=== PATIENT | female | born 2000 | race Caucasian/White ===

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

== ENCOUNTER 2018-03-07 11:44 | Emergency (ER) | payer BC ==
[2018-03-07 12:04] VITALS: RESP 18
--- NOTE | 2018-03-07 12:15 | ED ---
Chest Pain HPI - General Chief Complaint: Chest Pain Stated Complaint: Chest Pain Time Seen by Provider: 03/07/18 12:02 Source: patient, family, RN notes reviewed Mode of arrival: ambulatory Limitations: no limitations - History of Present Illness Initial Comments: This is a 17-year-old female presents emergency Department chief complaint of chest discomfort. Patient states that she is symptoms 2 months ago and most recently last few days. She states she feels a pressure-like pain in her sternal region and symptoms in her right rib region. He denies any trauma or any known injury. She states nothing seems to make the pain feel better or worse. She denies any associated shortness of breath, nausea, vomiting. She states that she did have some dizziness few days ago. Patient states that she checked her blood pressure this morning in her blood pressure was 138/116. Patient states that her heart rate was elevated at 120. She denies any palpitations. Denies any focal weakness. She has no prior cardiac disease denies hypertension, hyperlipidemia, smoking history. Patient states that she has no history of anxiety. - Related Data Home Medications Medication Instructions Recorded Confirmed Ibuprofen [Motrin Ib] 200 - 400 mg PO Q6H PRN 12/23/17 03/07/18 Medroxyprogesterone Acetate 150 mg IM Q90D 03/07/18 03/07/18 [Depo-Provera] Allergies Allergy/AdvReac Type Severity Reaction Status Date / Time No Known Allergies Allergy Verified 03/07/18 12:41 Review of Systems ROS Statement: Those systems with pertinent positive or pertinent negative responses have been documented in the HPI. ROS Other: All systems not noted in ROS Statement are negative. EKG Findings - EKG Comments: EKG Findings:: EKG performed this 12:16 normal sinus rhythm with a rate of 80 CA 138 QRS 86 QT/QTC 356/410 Past Medical History Past Medical History: No Reported History History of Any Multi-Drug Resistant Organisms: None Reported Past Surgical History: No Surgical Hx Reported Past Psychological History: No Psychological Hx Reported Smoking Status: Never smoker Past Alcohol Use History: None Reported Past Drug Use History: None Reported General Exam Limitations: no limitations General appearance: alert, in no apparent distress Head exam: Present: atraumatic, normocephalic, normal inspection Eye exam: Present: normal appearance, PERRL, EOMI. Absent: scleral icterus, conjunctival injection, periorbital swelling ENT exam: Present: normal exam, normal oropharynx, mucous membranes moist, TM's normal bilaterally Neck exam: Present: normal inspection, full ROM. Absent: tenderness, meningismus, lymphadenopathy Respiratory exam: Present: normal lung sounds bilaterally, chest wall tenderness. Absent: respiratory distress, wheezes, rales, rhonchi, stridor Cardiovascular Exam: Present: regular rate, normal rhythm, normal heart sounds. Absent: systolic murmur, diastolic murmur, rubs, gallop, clicks GI/Abdominal exam: Present: soft, normal bowel sounds. Absent: distended, tenderness, guarding, rebound, rigid Skin exam: Present: warm, dry, intact, normal color. Absent: rash Course Vital Signs 03/07/18 03/07/18 03/07/18 11:48 11:57 12:02 Temperature 98.2 F Pulse Rate 96 84 Pulse Rate [ 87 Left Sitting Pulse Oximetery ] Respiratory 20 18 Rate Blood Pressure 141/90 133/80 O2 Sat by Pulse 99 Oximetry 03/07/18 12:05 Temperature Pulse Rate Pulse Rate [ Left Sitting Pulse Oximetery ] Respiratory Rate Blood Pressure O2 Sat by Pulse 99 Oximetry Chest Pain MDM - MDM 17-year-old female presents from for chest pain. She has had on-and-off symptoms. Patient's EKG and chest x-ray are unremarkable. Patient's pain is reproducible and felt a be related to muscle skeletal chest wall pain. We discussed that she can follow-up with her PCP for possible Holter monitor and echocardiogram as needed. She does have an upcoming appointment. 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 I did explain that she does not have any evidence of cardiac arrhythmia at this time. Patient is perc negative. Disposition Clinical Impression: Chest wall pain Disposition: HOME SELF-CARE Condition: Stable Instructions: Chest Pain (ED) Additional Instructions: Please return to the Emergency Department if symptoms worsen or any other concerns. Is patient prescribed a controlled substance at d/c from ED?: No Referrals: Ke Tom DO [Primary Care Provider] - 1-2 days Magui Wymna MD [STAFF PHYSICIAN] - 1-2 days Time of Disposition: 13:14
--- NOTE | 2018-03-07 12:30 | XR ---
EXAMINATION TYPE: XR chest 2V DATE OF EXAM: 03/07/2018 COMPARISON: 12/23/2017 HISTORY: Chest pain and arrhythmia TECHNIQUE: Frontal and lateral views of the chest are obtained. FINDINGS: There is no focal air space opacity, pleural effusion, or pneumothorax seen. The cardiac silhouette size is within normal limits. The osseous structures are intact. IMPRESSION: No acute cardiopulmonary process.
[2018-03-07 13:24] VITALS: BP 116/74; PULSE 72; TEMP 98.3
== END 2018-03-07 13:22 | disposition home or self-care (01) ==
LOC: EC 11:44
DX: R07.89 Other chest pain (principal); R42 Dizziness and giddiness; Z79.3 Long term (current) use of hormonal contraceptives
CPT/HCPCS: 71046; 93005; 99285

== ENCOUNTER → 2018-03-21 | Outpatient (CLI) | payer BC | END | disposition home or self-care (01) | LOC: RADECHMAIN 12:23 | PROVIDERS: ATTEND Family Medicine | DX: I49.3 Ventricular premature depolarization (principal) | CPT/HCPCS: 93225; 93226 ==

== ENCOUNTER 2019-09-08 15:41 | Emergency (ER) | payer BC ==
[2019-09-08 17:35] LABS: Basophils % (A) 0 %; Eosinophils # (A) 0.1 k/uL (0-0.7); Eosinophils % (A) 1 %; HGB 13.5 gm/dL (11.4-16.0); Lymphocytes # (A) 2.7 k/uL (1.0-4.8); Lymphocytes % (A) 24 %; MCH 30.7 pg (25.0-35.0); MCHC 33.8 g/dL (31.0-37.0); Monocytes # (A) 0.5 k/uL (0-1.0); Monocytes % (A) 4 %; Neutrophils # (A) 7.7 k/uL (1.3-7.7); Neutrophils % (A) 69 %; Platelet Count 426 k/uL (150-450); RBC 4.39 m/uL (3.80-5.40); RDW 13.5 % (11.5-15.5); WBC 11.2 k/uL (3.8-10.6)
[2019-09-08 17:52] LABS: Albumin 4.3 g/dL (3.5-5.0); Calcium 9.5 mg/dL (8.4-10.2); Potassium 4.5 mmol/L (3.5-5.1); Total Bilirubin 0.4 mg/dL (0.2-1.3); Total Protein 7.8 g/dL (6.3-8.2)
--- NOTE | 2019-09-08 17:58 | XR ---
EXAMINATION: XR chest 2V DATE AND TIME: 09/08/2019 5:35 PM CLINICAL INDICATION: PHH; Chest Pain TECHNIQUE: Departmental protocol COMPARISON: 688 FINDINGS: The lungs are clear. The pleural spaces are negative. The cardiac silhouette is not enlarged. The remainder of the mediastinal silhouette is unremarkable. The skeletal structures and soft tissues are negative for acute findings. IMPRESSION: No acute radiographic process.
[2019-09-08] MEDS ORDERED: SODIUM CHLORIDE 0.9% 500 ML 500 ML IV STA (18:04)
--- NOTE | 2019-09-08 18:28 | ED ---
General Adult HPI - General Chief complaint: Chest Pain Stated complaint: Chest pain/heaviness Time Seen by Provider: 09/08/19 16:16 Source: patient, RN notes reviewed, old records reviewed Mode of arrival: wheelchair Limitations: no limitations - History of Present Illness Initial comments: 19-year-old female patient presents to ED for chief complaint of left parasternal chest pain. Patient reports that this began approximately noon. Reports that is reproducible by palpation. Described as slightly pleuritic in nature. Denies any shortness of breath. Denies a prior history of DVT, denies exogenous hormones use, denies any recent prolonged travel, denies any pain in legs, denies any active cancer. Denies any chance of being pregnany. Patient r eports that she did have wisdom teeth removed approximately 10 days ago Systemic: Pt denies fatigue, fever/chills, rash. Pt denies weakness, night sweats, weight loss. Neuro: Pt denies headache, visual disturbances, syncope or pre-syncope. HEENT: Pt denies ocular discharge or irritation, otalgia, rhinorrhea, pharyngitis or notable lymphadenopathy. Cardiopulmonary: Pt denies SOB, heart palpitations, dyspnea on exertion. Abdominal/GI: Pt denies abdominal pain, n/v/d. : Pt denies dysuria, burning w/ urination, frequency/urgency. Denies new onset urinary or bowel incontinence. MSK: Pt denies myalgia, loss of strength or function in extremities. Neuro: Pt denies new onset weakness, paresthesias. - Related Data Home Medications Medication Instructions Recorded Confirmed Ibuprofen [Motrin Ib] 200 - 400 mg PO Q6H PRN 12/23/17 03/07/18 Medroxyprogesterone Acetate 150 mg IM Q90D 03/07/18 03/07/18 [Depo-Provera] Allergies Allergy/AdvReac Type Severity Reaction Status Date / Time No Known Allergies Allergy Verified 09/08/19 15:53 Review of Systems ROS Statement: Those systems with pertinent positive or pertinent negative responses have been documented in the HPI. ROS Other: All systems not noted in ROS Statement are negative. Past Medical History Past Medical History: No Reported History History of Any Multi-Drug Resistant Organisms: None Reported Past Surgical History: No Surgical Hx Reported Past Psychological History: No Psychological Hx Reported Smoking Status: Never smoker Past Alcohol Use History: Occasional Past Drug Use History: None Reported General Exam - General Exam Comments Initial Comments: Constitutional: NAD, AOX3, Pt has pleasant affect. HEENT: NC/AT, trachea midline, neck supple, no lymphadenopathy. Posterior pharynx non erythematous, without exudates. External ears appear normal, without discharge. Mucous membranes moist. Eyes PERRLA, EOM intact. There is no scleral icterus. No pallor noted. Cardiopulmonary: RRR, no murmurs, rubs or gallops, no JVD noted. Lungs CTAB in anterior and posterior canseco. No peripheral edema. chest pain reproducible upon palpation. Abdominal exam: Abdomen soft and non-distended. Abdomen non-tender to palpation in all 4 quadrants. Bowel sounds active in LLQ. No hepatosplenomegaly. No ecchymosis Neuro: CN II-XII grossly intact. No nuchal rigidity. No raccon eyes, no salgado sign, no hemotympanum. No cervical spinal tenderness. MSK: No posterior calf tenderness bilaterally, homans sign negative bilaterally. Posterior tibialis and radial pulse +2 bilaterally. Sensation intact in upper and lower extremities. Full active ROM in upper and lower extremities, 5/5 stregnth. Limitations: no limitations Course Vital Signs 09/08/19 09/08/19 15:49 18:41 Temperature 98.3 F 98.1 F Pulse Rate 111 H 87 Respiratory 18 16 Rate Blood Pressure 143/90 120/84 O2 Sat by Pulse 98 99 Oximetry Medical Decision Making - Medical Decision Making 19-year-old female patient presents to ED for chief complaint of left parasternal chest pain. Patient reports that this began approximately noon. Reports that is reproducible by palpation. Described as slightly pleuritic in nature. Denies any shortness of breath. Denies a prior history of DVT, denies exogenous hormones use, denies any recent prolonged travel, denies any pain in legs, denies any active cancer. Patient reports that she did have wisdom teeth removed approximately 10 days ago. Denies any chance of being pregnany. Patient vital signs stable, afebrile. Physical exam did not display acute pathology. Regular rate and rhythm. Aria sign negative, no unilateral leg swelling. Ten derness, erythema. Chest pain reproducible upon palpation. Patient reports this is the pain that she is experiencing. EKG nonischemic. Chest x-ray negative. Upon reevaluation patient reports that discomfort had resolved without intervention. Pain appears more costochondritic in nature. Patient stable for discharge. Follow up with primary care provider tomorrow. Patient will have creatinine rechecked as was mildly elevated. Case discussed with Dr. Calles. - Lab Data Result diagrams: 09/08/19 16:22 09/08/19 16:22 Lab Results 09/08/19 09/08/19 09/08/19 Range/Units 16:22 16:22 16:22 WBC 11.2 H (3.8-10.6) k/uL RBC 4.39 (3.80-5.40) m/uL Hgb 13.5 (11.4-16.0) gm/dL Hct 40.0 (34.0-46.0) % MCV 91.0 (80.0-100.0) fL MCH 30.7 (25.0-35.0) pg MCHC 33.8 (31.0-37.0) g/dL RDW 13.5 (11.5-15.5) % Plt Count 426 (150-450) k/uL Neutrophils % 69 % Lymphocytes % 24 % Monocytes % 4 % Eosinophils % 1 % Basophils % 0 % Neutrophils # 7.7 (1.3-7.7) k/uL Lymphocytes # 2.7 (1.0-4.8) k/uL Monocytes # 0.5 (0-1.0) k/uL Eosinophils # 0.1 (0-0.7) k/uL Basophils # 0.0 (0-0.2) k/uL Sodium 140 (137-145) mmol/L Potassium 4.5 (3.5-5.1) mmol/L Chloride 106 (98-107) mmol/L Carbon Dioxide 25 (22-30) mmol/L Anion Gap 9 mmol/L BUN 12 (7-17) mg/dL Creatinine 1.06 H (0.52-1.04) mg/dL Est GFR (CKD-EPI)AfAm 87 (>60 ml/min/1.73 sqM) Est GFR (CKD-EPI)NonAf 75 (>60 ml/min/1.73 sqM) Glucose 88 (74-99) mg/dL Calcium 9.5 (8.4-10.2) mg/dL Total Bilirubin 0.4 (0.2-1.3) mg/dL AST 23 (14-36) U/L ALT 32 (9-52) U/L Alkaline Phosphatase 90 (38-126) U/L Troponin I <0.012 (0.000-0.034) ng/mL Total Protein 7.8 (6.3-8.2) g/dL Albumin 4.3 (3.5-5.0) g/dL - EKG Data -: EKG Interpreted by Me (and Dr. Calles ) EKG Comments: Ventricular rate 75,. Full 144, QRS 90, QT/QTC 374/417. Sinus rhythm with marked sinus arrhythmia. Otherwise normal EKG. No concern for acute ischemia at this time. Disposition Clinical Impression: Chest wall pain Disposition: HOME SELF-CARE Condition: Stable Instructions (If sedation given, give patient instructions): Costochondritis (ED) Additional Instructions: Follow-up with primary care provider tomorrow. Continue to drink lots of fluids. Have kidney function rechecked. Return to ER if condition worsens in any way. Is patient prescribed a controlled substance at d/c from ED?: No Referrals: Ke Tom DO [Primary Care Provider] - 1-2 days
[2019-09-08 18:42] VITALS: RESP 16; TEMP 98.1
[2019-09-08 19:28] VITALS: BP 118/79; PULSE 72
== END 2019-09-08 19:28 | disposition home or self-care (01) ==
LOC: EC 15:41
DX: R07.89 Other chest pain (principal)
CPT/HCPCS: 36415; 71046; 80053; 84484; 85025; 93005; 96360; 99285

== ENCOUNTER 2019-12-04 | Emergency (ER) | payer BC | END 2019-12-04 13:13 | disposition home or self-care (01) | CPT/HCPCS: 36415; 71046; 80053; 83735; 84484; 85025; 85379; 85610; 85730; 93005; 99285 ==

== ENCOUNTER 2019-12-31 14:48 | Emergency (ER) | payer BC ==
[2019-12-31 14:57] VITALS: BP 140/84; TEMP 98.8
--- NOTE | 2019-12-31 15:17 | XR ---
EXAMINATION TYPE: XR chest 1V DATE OF EXAM: 12/31/2019 COMPARISON: 12/04/2019 INDICATION: Cough TECHNIQUE: Single frontal view of the chest is obtained. FINDINGS: The heart size is normal. The pulmonary vasculature is normal. The lungs are clear. IMPRESSION: 1. No acute pulmonary process.
[2019-12-31 15:31] VITALS: PULSE 74; RESP 18
--- NOTE | 2019-12-31 15:31 | ED ---
General Adult HPI - General Chief complaint: Upper Respiratory Infection Stated complaint: SENT FOR COVID TESTING Time Seen by Provider: 12/31/19 14:58 Source: patient, RN notes reviewed, old records reviewed Mode of arrival: ambulatory Limitations: no limitations - History of Present Illness Initial comments: 19-year-old female patient who is on metoprolol for a reported normal condition for which she does not know what it is called presents to ED for chief complaint of 2 weeks of cough, waxing and waning fevers, anosmia, diarrhea, shortness of breath. He was recently on amoxicillin for strep throat. Reports that she has some chest pain while coughing. She called her primary doctor who recommended to present to the ER for COVID19 testing. Denies any other complaints. Systemic: Pt denies fatigue, fever/chills, rash. Pt denies weakness, night sweats, weight loss. Neuro: Pt denies headache, visual disturbances, syncope or pre-syncope. HEENT: Pt denies ocular discharge or irritation, otalgia, rhinorrhea, pharyngitis or notable lymphadenopathy. Cardiopulmonary: Pt denies heart palpitations, dyspnea on exertion. Abdominal/GI: Pt denies abdominal pain, vomitting. : Pt denies dysuria, burning w/ urination, frequency/urgency. Denies new onset urinary or bowel incontinence. MSK: Pt denies myalgia, loss of strength or function in extremities. Neuro: Pt denies new onset weakness, paresthesias. - Related Data Home Medications Medication Instructions Recorded Confirmed Acetaminophen Tab [Tylenol] 650 mg PO Q6H PRN 12/31/19 12/31/19 Metoprolol Succinate [Toprol XL] 25 mg PO DAILY 12/31/19 12/31/19 Previous Rx's Medication Instructions Recorded Albuterol Inhaler (Bulk) [Ventolin 1 - 2 puff INHALATION Q4-6H PRN #1 12/31/19 Hfa Inhaler (Bulk)] inhaler Allergies Allergy/AdvReac Type Severity Reaction Status Date / Time No Known Allergies Allergy Verified 12/31/19 15:18 Review of Systems ROS Statement: Those systems with pertinent positive or pertinent negative responses have been documented in the HPI. ROS Other: All systems not noted in ROS Statement are negative. Past Medical History Past Medical History: Hypertension Additional Past Medical History / Comment(s): elevated heart rate History of Any Multi-Drug Resistant Organisms: None Reported Past Surgical History: No Surgical Hx Reported Past Psychological History: No Psychological Hx Reported Smoking Status: Never smoker Past Alcohol Use History: Occasional Past Drug Use History: None Reported General Exam - General Exam Comments Initial Comments: Constitutional: NAD, AOX3, Pt has pleasant affect. HEENT: NC/AT, trachea midline, neck supple, no lymphadenopathy. Posterior pharynx non erythematous, without exudates. External ears appear normal, without discharge. Mucous membranes moist. Eyes PERRLA, EOM intact. There is no scleral icterus. No pallor noted. Cardiopulmonary: RRR, no murmurs, rubs or gallops, no JVD noted. Lungs CTAB in anterior and posterior canseco. No peripheral edema. No respiratory distress. Abdominal exam: Abdomen soft and non-distended. Abdomen non-tender to palpation in all 4 quadrants. Bowel sounds active in LLQ. No hepatosplenomegaly. No ecchymosis Neuro: CN II-XII grossly intact. No nuchal rigidity. No raccon eyes, no salgado sign, no hemotympanum. No cervical spinal tenderness. MSK: No posterior calf tenderness bilaterally, homans sign negative bilaterally. Posterior tibialis and radial pulse +2 bilaterally. Sensation intact in upper and lower extremities. Full active ROM in upper and lower extremities, 5/5 stregnth. Limitations: no limitations Course Vital Signs 12/31/19 12/31/19 14:54 15:25 Temperature 98.8 F Pulse Rate 102 H 74 Respiratory 20 18 Rate Blood Pressure 140/84 O2 Sat by Pulse 96 Oximetry Medical Decision Making - Medical Decision Making 19-year-old female patient who is on metoprolol for a reported normal condition for which she does not know what it is called presents to ED for chief complaint of 2 weeks of cough, waxing and waning fevers, anosmia, diarrhea, shortness of breath. He was recently on amoxicillin for strep throat. Reports that she has some chest pain while coughing. She called her primary doctor who recommended to present to the ER for COVID19 testing. Denies any other complaints. Patient vital signs are stable, afebrile. Physical exam did not demonstrate acute pathology. Lungs are clear. Patient not in any respiratory distress. EKG is nonischemic. Patient had recent cardiac workup on 12/03 which was negative. Patient's symptoms are concerning for coronavirus. Patient will be discharged with strict return precautions outpatient primary care follow-up. Case discussed with Dr. Carreno. - EKG Data -: EKG Interpreted by Me (and Dr. Carreno ) EKG Comments: Ventricular rate 74, painful 152, QRS 90, QT/QTC 366 is 46. Normal sinus rhythm, possible left atrial enlargement. Possible age indeterminate anterior infarct. No concern for acute ischemia at this time. Disposition Clinical Impression: Suspected [place] coronavirus infection, Cough Disposition: HOME SELF-CARE Condition: Stable Instructions (If sedation given, give patient instructions): Upper Respiratory Infection (ED) Additional Instructions: Follow-up primary care provider tomorrow. Use albuterol inhaler as needed. Return to ER if symptoms worsen in any way. Prescriptions: Albuterol Inhaler (Bulk) [Ventolin Hfa Inhaler (Bulk)] 1 - 2 puff INHALATION Q4- 6H PRN #1 inhaler PRN Reason: Cough Is patient prescribed a controlled substance at d/c from ED?: No Referrals: Ke Tom DO [Primary Care Provider] - 1-2 days
== END 2019-12-31 16:38 | disposition home or self-care (01) ==
LOC: EC 14:48
DX: R05 Cough (principal); Z20.828 Contact with and (suspected) exposure to other viral communicable diseases; R50.9 Fever, unspecified; R43.0 Anosmia; R19.7 Diarrhea, unspecified; R06.02 Shortness of breath; R07.9 Chest pain, unspecified; I10 Essential (primary) hypertension; Z79.899 Other long term (current) drug therapy; Z86.19 Personal history of other infectious and parasitic diseases
CPT/HCPCS: 71045; 93005; 99285

== ENCOUNTER 2021-04-18 10:25 | Emergency (ER) | payer BC ==
[2021-04-18 10:29] VITALS: RESP 18
[2021-04-18] MEDS ORDERED: MORPHINE SULFATE 4 MG/ML SYRINGE IV STA (11:20)
[2021-04-18] MEDS ORDERED: ONDANSETRON 4 MG/2 ML VIAL IVP STA (11:20)
[2021-04-18] MEDS ORDERED: SODIUM CHLORIDE 0.9% 1,000 ML IV STA (11:20)
[2021-04-18 11:34] LABS: Basophils # (A) 0.1 k/uL (0-0.2); Basophils % (A) 0 %; Eosinophils # (A) 0.1 k/uL (0-0.7); Eosinophils % (A) 1 %; HCT 45.9 % (34.0-46.0); HGB 15.6 gm/dL (11.4-16.0); Lymphocytes # (A) 2.1 k/uL (1.0-4.8); Lymphocytes % (A) 16 %; MCH 32.1 pg (25.0-35.0); MCV 94.5 fL (80.0-100.0); Mean Platelet Volume 8.3; Monocytes # (A) 0.5 k/uL (0-1.0); Monocytes % (A) 4 %; Neutrophils % (A) 78 %; Platelet Count 375 k/uL (150-450); RBC 4.86 m/uL (3.80-5.40); WBC 12.8 k/uL (3.8-10.6)
[2021-04-18 11:36] LABS: Appearance,Urine Clear (Clear); Bilirubin,Urine Negative (Negative); Blood,Urine Negative (Negative); Color,Urine Yellow; Glucose,Urine (UA) Negative (Negative); Ketones,Urine Negative (Negative); Leukocyte Esterase,Urine Negative (Negative); Nitrite,Urine Negative (Negative); PH, Urine 7.5 (5.0-8.0); Protein,Urine Negative (Negative); Specific Gravity,Urine 1.025 (1.001-1.035)
[2021-04-18 11:42] LABS: ALT 26 U/L (4-34); AST 28 U/L (14-36); African American GFR (CKD) >90 (>60 ml/min/1.73 sqM); Albumin 4.6 g/dL (3.5-5.0); Alkaline Phosphatase 70 U/L (38-126); Amylase 61 U/L (30-110); Anion Gap 8 mmol/L; Blood Urea Nitrogen 10 mg/dL (7-17); Calcium 9.7 mg/dL (8.4-10.2); Carbon Dioxide 27 mmol/L (22-30); Chloride 104 mmol/L (98-107); Glucose 100 mg/dL (74-99); Lipase 49 U/L (23-300); Non-African American GFR(CKD) 88 (>60 ml/min/1.73 sqM); Potassium 4.2 mmol/L (3.5-5.1); Sodium 139 mmol/L (137-145); Total Bilirubin 0.8 mg/dL (0.2-1.3); Total Protein 7.2 g/dL (6.3-8.2)
--- NOTE | 2021-04-18 12:28 | CT ---
EXAMINATION TYPE: CT abdomen pelvis w con DATE OF EXAM: 04/18/2021 COMPARISON: None INDICATION: RLQ pain DLP: 993 mGycm, Automated exposure control for dose reduction was used. CONTRAST: 100 mL of Isovue 300. Study performed without Oral Contrast TECHNIQUE: Axial images were obtained from above the diaphragm to the pubic rami in the axial plane a t 5 mm thick sections. Reconstructed images are reviewed on the computer in the coronal plane. FINDINGS: Limited CT sections are obtained the lung bases. The lung bases are clear. CT ABDOMEN: Liver: Normal Spleen: Normal Pancreas: Normal Adrenal glands: The adrenal glands are normal. Gallbladder: Normal Kidneys: No masses are evident. No hydronephrosis is present. No cysts are present. Delayed images were obtained through the kidneys, which remain unremarkable. Aorta: Normal Inferior vena cava: Normal. CT PELVIS: Loops of bowel within the abdomen and pelvis are normal. This study is performed without oral con trast limiting bowel evaluation. Appendix: Not identified. No suspicious dilated tubular structure or inflammatory changes are eviden t. Clinical management of any suspected appendicitis is recommended. Urinary bladder: Normal. Genitourinary structures: Uterus appears normal. The left ovary appears bulky. Osseous structures: No suspicious lytic or sclerotic lesions. IMPRESSIONS: 1. Appendix is not identified. No suspicious dilated tubular structure or inflammatory changes are e vident. Clinical management of any suspected appendicitis is recommended. 2. Slightly bulky ovaries left more so than right. Discrete underlying abnormality is not evident. 3. No suspicious abnormalities account for right lower quadrant pain
--- NOTE | 2021-04-18 13:26 | ED ---
Abdominal Pain HPI - General Source: patient, family, RN notes reviewed Mode of arrival: ambulatory Limitations: no limitations <Rudi Barksdale - Last Filed: 04/18/21 14:29> <Kaycee Carreno - Last Filed: 04/19/21 01:24> - General Chief Complaint: Abdominal Pain Stated Complaint: Abd Pain Time Seen by Provider: 04/18/21 11:16 - History of Present Illness Initial Comments: Patient is a 21-year-old female that presents to emergency room complaining of right lower quadrant pain since 1:30 this morning. She notes that she has nauseous but has not vomited. She notes her bowel movements are regular. She notes the pain is approximately an 8 out of 10 with no relief from at home medications. She was a well-appearing well-hydrated 21-year-old female. She denied any chest pain shortness of breath headache vomiting diarrhea constipation fever fatigue chills. (Rudi Barksdale) - Related Data Home Medications Medication Instructions Recorded Confirmed No Known Home Medications 04/18/21 04/18/21 Allergies Allergy/AdvReac Type Severity Reaction Status Date / Time No Known Allergies Allergy Verified 04/18/21 13:49 Review of Systems ROS Other: All systems not noted in ROS Statement are negative. <Rudi Barksdale - Last Filed: 04/18/21 14:29> ROS Other: All systems not noted in ROS Statement are negative. <Kaycee Carreno - Last Filed: 04/19/21 01:24> ROS Statement: Those systems with pertinent positive or pertinent negative responses have been documented in the HPI. Past Medical History Past Medical History: Hypertension Additional Past Medical History / Comment(s): elevated heart rate History of Any Multi-Drug Resistant Organisms: None Reported Past Surgical History: No Surgical Hx Reported Past Psychological History: No Psychological Hx Reported Smoking Status: Never smoker Past Alcohol Use History: Occasional Past Drug Use History: None Reported <Rudi Barksdale - Last Filed: 04/18/21 14:29> General Exam Limitations: no limitations General appearance: alert, in no apparent distress Head exam: Present: atraumatic, normocephalic, normal inspection Eye exam: Present: normal appearance, PERRL, EOMI. Absent: scleral icterus, conjunctival injection, periorbital swelling Neck exam: Present: normal inspection Respiratory exam: Present: normal lung sounds bilaterally. Absent: respiratory distress, wheezes, rales, rhonchi, stridor Cardiovascular Exam: Present: regular rate, normal rhythm, normal heart sounds. Absent: systolic murmur, diastolic murmur, rubs, gallop, clicks GI/Abdominal exam: Present: soft, normal bowel sounds. Absent: distended, tenderness, guarding, rebound, rigid Expanded GI/Abdominal exam: Present: Rovsing's sign, tenderness at McBurney's Point Extremities exam: Present: normal inspection, full ROM, normal capillary refill. Absent: tenderness, pedal edema, joint swelling, calf tenderness Neurological exam: Present: alert, oriented X3 Psychiatric exam: Present: normal affect, normal mood Skin exam: Present: warm, dry, intact, normal color. Absent: rash <Rudi Barksdale - Last Filed: 04/18/21 14:29> Course Vital Signs 04/18/21 04/18/21 10:26 14:48 Temperature 98.1 F 97.8 F Pulse Rate 75 61 Respiratory 18 18 Rate Blood Pressure 141/97 112/73 O2 Sat by Pulse 99 99 Oximetry Medical Decision Making - Lab Data Result diagrams: 04/18/21 11:24 04/18/21 11:24 - Radiology Data Radiology results: report reviewed, image reviewed <Rudi Barksdale - Last Filed: 04/18/21 14:29> - Lab Data Result diagrams: 04/18/21 11:24 04/18/21 11:24 <Kaycee Carreno - Last Filed: 04/19/21 01:24> - Medical Decision Making 21-year-old female complaining of right lower quadrant pain since 1:30 this morning. Labs, CT of the abdomen and pelvis, 4 mg morphine, 4 mg of Zofran, 1 L normal saline ordered. Labs: White blood cells 12.8, rest unremarkable. CT negative for any acute process such as appendicitis. Transvaginal ultrasound ordered to check for ovarian torsion. Transvaginal ultrasound shows no ovarian torsion, multiple ovarian cysts. Case discussed with Dr. Carreno, patient discharge home with follow-up to primary care and [facility] as needed. (Rudi Barksdale) Nina was available for consultation in the emergency department. The history and physical exam were done by the midlevel provider. I was consulted for this jeremias ents care. I reviewed the case with the midlevel provider and based on their presentation of the patient, I agree with the assessment, medical decision making and plan of care as documented. Chart was dictated using [employer] dictation software. Attempts were made to correct any dictation errors however some typographical errors may persist. (Kaycee Carreno) - Lab Data Lab Results 04/18/21 04/18/21 04/18/21 Range/Units 11:24 11:24 11:24 WBC 12.8 H (3.8-10.6) k/uL RBC 4.86 (3.80-5.40) m/uL Hgb 15.6 (11.4-16.0) gm/dL Hct 45.9 (34.0-46.0) % MCV 94.5 (80.0-100.0) fL MCH 32.1 (25.0-35.0) pg MCHC 34.0 (31.0-37.0) g/dL RDW 13.0 (11.5-15.5) % Plt Count 375 (150-450) k/uL MPV 8.3 Neutrophils % 78 % Lymphocytes % 16 % Monocytes % 4 % Eosinophils % 1 % Basophils % 0 % Neutrophils # 10.0 H (1.3-7.7) k/uL Lymphocytes # 2.1 (1.0-4.8) k/uL Monocytes # 0.5 (0-1.0) k/uL Eosinophils # 0.1 (0-0.7) k/uL Basophils # 0.1 (0-0.2) k/uL Sodium (137-145) mmol/L Potassium (3.5-5.1) mmol/L Chloride (98-107) mmol/L Carbon Dioxide (22-30) mmol/L Anion Gap mmol/L BUN (7-17) mg/dL Creatinine (0.52-1.04) mg/dL Est GFR (CKD-EPI)AfAm (>60 ml/min/1.73 sqM) Est GFR (CKD-EPI)NonAf (>60 ml/min/1.73 sqM) Glucose (74-99) mg/dL Calcium (8.4-10.2) mg/dL Total Bilirubin (0.2-1.3) mg/dL AST (14-36) U/L ALT (4-34) U/L Alkaline Phosphatase (38-126) U/L Total Protein (6.3-8.2) g/dL Albumin (3.5-5.0) g/dL Amylase (30-110) U/L Lipase (23-300) U/L Urine Color Yellow Urine Appearance Clear (Clear) Urine pH 7.5 (5.0-8.0) Ur Specific [place] 1.025 (1.001-1.035) Urine Protein Negative (Negative) Urine Glucose (UA) Negative (Negative) Urine Ketones Negative (Negative) Urine Blood Negative (Negative) Urine Nitrite Negative (Negative) Urine Bilirubin Negative (Negative) Urine Urobilinogen 2.0 (<2.0) mg/dL Ur Leukocyte Esterase Negative (Negative) Urine HCG, Qual Not Detected (Not Detectd) 04/18/21 Range/Units 11:24 WBC (3.8-10.6) k/uL RBC (3.80-5.40) m/uL Hgb (11.4-16.0) gm/dL Hct (34.0-46.0) % MCV (80.0-100.0) fL MCH (25.0-35.0) pg MCHC (31.0-37.0) g/dL RDW (11.5-15.5) % Plt Count (150-450) k/uL MPV Neutrophils % % Lymphocytes % % Monocytes % % Eosinophils % % Basophils % % Neutrophils # (1.3-7.7) k/uL Lymphocytes # (1.0-4.8) k/uL Monocytes # (0-1.0) k/uL Eosinophils # (0-0.7) k/uL Basophils # (0-0.2) k/uL Sodium 139 (137-145) mmol/L Potassium 4.2 (3.5-5.1) mmol/L Chloride 104 (98-107) mmol/L Carbon Dioxide 27 (22-30) mmol/L Anion Gap 8 mmol/L BUN 10 (7-17) mg/dL Creatinine 0.92 (0.52-1.04) mg/dL Est GFR (CKD-EPI)AfAm >90 (>60 ml/min/1.73 sqM) Est GFR (CKD-EPI)NonAf 88 (>60 ml/min/1.73 sqM) Glucose 100 H (74-99) mg/dL Calcium 9.7 (8.4-10.2) mg/dL Total Bilirubin 0.8 (0.2-1.3) mg/dL AST 28 (14-36) U/L ALT 26 (4-34) U/L Alkaline Phosphatase 70 (38-126) U/L Total Protein 7.2 (6.3-8.2) g/dL Albumin 4.6 (3.5-5.0) g/dL Amylase 61 (30-110) U/L Lipase 49 (23-300) U/L Urine Color Urine Appearance (Clear) Urine pH (5.0-8.0) Ur Specific [place] (1.001-1.035) Urine Protein (Negative) Urine Glucose (UA) (Negative) Urine Ketones (Negative) Urine Blood (Negative) Urine Nitrite (Negative) Urine Bilirubin (Negative) Urine Urobilinogen (<2.0) mg/dL Ur Leukocyte Esterase (Negative) Urine HCG, Qual (Not Detectd) - Radiology Data CT of the abdomen and pelvis: Appendix is not identified. No suspicious dilated tubular structure inflammatory changes are evident. Clinical management of any suspected appendicitis is recommended. Slightly bulky ovaries left more so than right. Discrete underlying abnormality is evident. No suspicious abnormalities account for right lower quadrant pain. Transvaginal ultrasound: The bilateral ovaries contain multiple peripheral follicles. Please correlate clinical for possible polycystic ovarian syndrome. Small amount of free fluid in the pelvis. (Rudi Barksdale) Disposition Is patient prescribed a controlled substance at d/c from ED?: No Time of Disposition: 14:30 <Rudi Barksdale - Last Filed: 04/18/21 14:29> <Kaycee Carreno - Last Filed: 04/19/21 01:24> Clinical Impression: Abdominal pain, Ovarian cyst Disposition: HOME SELF-CARE Condition: Stable Instructions (If sedation given, give patient instructions): Abdominal Pain (ED) Additional Instructions: Please return to the Emergency Department if symptoms worsen or any other concerns. Follow-up with primary care in the next several days. Follow-up with [facility] in next several days. Take Tylenol and Motrin as needed for pain. Increase oral fluids. Please return if any vomiting fever or change in bowel habits or increased pain.. Referrals: Ke Tom DO [Primary Care Provider] - 1-2 days
[2021-04-18] MEDS ORDERED: HYDROmorphone 1 MG/ML 1 ML SYRINGE IVP STA (13:49)
--- NOTE | 2021-04-18 14:11 | US ---
EXAMINATION TYPE: US transvaginal DATE OF EXAM: 04/18/2021 COMPARISON: Same day CT CLINICAL HISTORY: RLQ pain. RLQ pain TECHNIQUE: Transvaginal (TV). Transvaginal sonographic images of the pelvis were acquired. Date of LMP: December 2020 EXAM MEASUREMENTS: Uterus: 6.7 x 3.1 x 4.1 cm Endometrial Stripe: 0.6 cm Right Ovary: 3.9 x 2.7 x 3.8 cm Left Ovary: 4.3 x 2.7 x 2.7 cm 1. Uterus: Anteverted Nabothian cyst in cervix 2. Endometrium: wnl 3. Right Ovary: Contains multiple peripheral follicles 4. Left Ovary: Contains multiple peripheral follicles Spectral, color and waveform doppler imaging shows good arterial and venous flow within the ovaries ; there is no evidence for ovarian torsion. 5. Bilateral Adnexa: Small amount of fluid left adnexa 6. Posterior cul-de-sac: Small amount of free fluid IMPRESSION: 1. The bilateral ovaries contain multiple peripheral follicles. Please correlate clinically for possi ble polycystic ovarian syndrome. 2. Small amount of free fluid in the pelvis.
[2021-04-18 14:49] VITALS: BP 112/73; PULSE 61; TEMP 97.8
== END 2021-04-18 14:48 | disposition home or self-care (01) ==
LOC: EC 10:25
DX: N83.201 Unspecified ovarian cyst, right side (principal); I10 Essential (primary) hypertension
CPT/HCPCS: 36415; 80053; 82150; 83690; 85025; 81003; 81025; 93975; 76830; 74177; 96374; 96375 ×2; 96361; 99284; J2270; J2405; J1170; Q9967

== ENCOUNTER 2021-04-21 12:19 | Emergency (ER) | payer BC ==
[2021-04-21] MEDS ORDERED: MORPHINE SULFATE 4 MG/ML SYRINGE IV STA (12:55)
[2021-04-21] MEDS ORDERED: ONDANSETRON 4 MG/2 ML VIAL IVP STA (12:55)
[2021-04-21] MEDS ORDERED: SODIUM CHLORIDE 0.9% 1,000 ML IV STA (12:55)
[2021-04-21] MEDS ORDERED: KETOROLAC 15 MG/ML 1 ML VIAL IVP STA (12:55)
[2021-04-21 13:56] LABS: ALT 49 U/L (4-34); AST 46 U/L (14-36); African American GFR (CKD) >90 (>60 ml/min/1.73 sqM); Albumin 4.6 g/dL (3.5-5.0); Alkaline Phosphatase 68 U/L (38-126); Anion Gap 9 mmol/L; Blood Urea Nitrogen 12 mg/dL (7-17); Calcium 10.1 mg/dL (8.4-10.2); Carbon Dioxide 24 mmol/L (22-30); Chloride 105 mmol/L (98-107); Glucose 78 mg/dL (74-99); Lipase 88 U/L (23-300); Magnesium 2.2 mg/dL (1.6-2.3); Non-African American GFR(CKD) 86 (>60 ml/min/1.73 sqM); Potassium 4.7 mmol/L (3.5-5.1); Sodium 138 mmol/L (137-145); Total Bilirubin 0.4 mg/dL (0.2-1.3); Total Protein 7.4 g/dL (6.3-8.2)
[2021-04-21 14:24] LABS: Appearance,Urine Clear (Clear); Basophils # (A) 0.1 k/uL (0-0.2); Basophils % (A) 1 %; Bilirubin,Urine Negative (Negative); Blood,Urine Negative (Negative); Color,Urine Yellow; Eosinophils # (A) 0.1 k/uL (0-0.7); Eosinophils % (A) 1 %; Glucose,Urine (UA) Negative (Negative); HCT 45.5 % (34.0-46.0); HGB 15.8 gm/dL (11.4-16.0); Ketones,Urine Negative (Negative); Leukocyte Esterase,Urine Negative (Negative); Lymphocytes # (A) 2.4 k/uL (1.0-4.8); Lymphocytes % (A) 29 %; MCHC 34.8 g/dL (31.0-37.0); MCV 94.8 fL (80.0-100.0); Mean Platelet Volume 9.7; Monocytes # (A) 0.4 k/uL (0-1.0); Monocytes % (A) 5 %; Neutrophils # (A) 5.4 k/uL (1.3-7.7); Neutrophils % (A) 64 %; Nitrite,Urine Negative (Negative); PH, Urine 5.5 (5.0-8.0); Platelet Count 352 k/uL (150-450); Protein,Urine Negative (Negative); RDW 13.2 % (11.5-15.5); Specific Gravity,Urine 1.026 (1.001-1.035); Urobilinogen,Urine <2.0 mg/dL (<2.0); WBC 8.5 k/uL (3.8-10.6)
[2021-04-21 14:35] VITALS: RESP 16
--- NOTE | 2021-04-21 15:36 | ED ---
General Adult HPI - General Chief complaint: Abdominal Pain Stated complaint: Abdominal pain Time Seen by Provider: 04/21/21 12:34 Source: patient, RN notes reviewed, old records reviewed Mode of arrival: ambulatory Limitations: no limitations - History of Present Illness Initial comments: Patient is a 21-year-old female with post concussion past medical history presents emergency Department complaining of abdominal pain. She states that this is been ongoing for 1-2 weeks. She was previously seen in the emergency department on 04/18. She was evaluated for the abdominal pain at that time and that included an appendicitis workup including abdominal CT as well as transvaginal ultrasound. Work up was negative for acute appendicitis. I did reveal polycystic ovarian syndrome concern on the transvaginal ultrasound. She was instructed follow-up with [employer]. The patient was seen and an outpatient urgent care today, was concerned that the CT imaging, because it did not show the appendix, that she may have appendicitis. This was explained by one of the other ER doctors that this is actually a good finding, indicating no appendicitis, but we will reevaluate the patient at their request. Patient presents after being sent in by urgent care. She has not yet followed up with [employer]IAN, who she follows up with on Saturday. She states she is just having persisting, unchanged right lower quadrant abdominal pain. She stated she is not . She states she this is also associated with nausea as well as nonbilious emesis. She has difficulty tolerating by mouth intake. She denies any change in her bowel movements. She has any vaginal bleeding or discharge, but the stay having an abnormal. Since coming off control 3 years ago. Last period was in December. She does not believe she is . She denies any dysuria or hematuria. She has no other acute complaints at this time. Patient states that her exam is relatively unchanged from earlier in the week, however it is just persistent and not improving. - Related Data Home Medications Medication Instructions Recorded Confirmed Albuterol Sulfate [Proair Hfa] 2 puff INHALATION RT-Q4H PRN 04/21/21 04/21/21 Fluticasone Nasal [place] [Flonase 1 spr EA NOSTRIL BID PRN 04/21/21 04/21/21 Nasal [place]] Ibuprofen [Motrin Ib] 400 mg PO Q8H PRN 04/21/21 04/21/21 Previous Rx's Medication Instructions Recorded Acetaminophen [Tylenol] 500 mg PO Q4-6H PRN #50 tab 04/21/21 Lidocaine 5% Patch [Lidoderm 5% 1 patch TOPICAL DAILY PRN #7 patch 04/21/21 Patch] Naproxen [Naprosyn] 500 mg PO Q12HR PRN #14 tab 04/21/21 Ondansetron Odt [Zofran Odt] 4 mg PO Q8HR PRN #9 tab 04/21/21 Allergies Allergy/AdvReac Type Severity Reaction Status Date / Time No Known Allergies Allergy Verified 04/21/21 13:35 Review of Systems ROS Statement: Those systems with pertinent positive or pertinent negative responses have been documented in the HPI. Review of Systems: CONST: Denies fever EYES: Denies blurry vision ENT: Denies nasal congestion C/V: Denies Chest pain RESP: Denies shortness of breath GI: Endorses abdominal pain : Denies dysuria SKIN: Denies rash. MSK: Denies joint pain. NEURO: Denies headache ROS Other: All systems not noted in ROS Statement are negative. Past Medical History Past Medical History: Hypertension Additional Past Medical History / Comment(s): elevated heart rate History of Any Multi-Drug Resistant Organisms: None Reported Past Surgical History: No Surgical Hx Reported Past Psychological History: No Psychological Hx Reported Smoking Status: Never smoker Past Alcohol Use History: Occasional Past Drug Use History: None Reported General Exam - General Exam Comments Initial Comments: General: Appears in very mild distress secondary to abdominal discomfort. HEAD: Normal with no signs of head trauma. EYES: PERRLA, EOMI, conjunctiva normal, no discharge. ENT: Hearing grossly intact, normal oropharynx. Oropharynx is not dry. RESPIRATORY: Clear breath sounds bilaterally. No wheezes, rales, or rhonchi. C/V: Regular rate and rhythm. S1 and S2 auscultated, no edema, peripheral pulses 2+ and intact throughout ABD: Abdomen is soft, nondistended. Patient is very mildly tender to palpation in the right lower quadrant/epigastric region. McBurney's point is negative. Hewitt sign is negative. Rovsing sign is negative. EXT: Normal range of motion, no obvious deformity SKIN: No rashes or lesions observed on exposed skin. NEURO: Alert and oriented 4. Limitations: no limitations Course Vital Signs 04/21/21 04/21/2121 12:25 14:34 15:56 Temperature 98 F 98.0 F 98.3 F Pulse Rate 57 L 60 53 L Respiratory 20 16 16 Rate Blood Pressure 152/77 110/73 122/69 O2 Sat by Pulse 99 100 99 Oximetry Medical Decision Making - Medical Decision Making Based on the patient's presentation and physical exam, she does appear to be having her persistent symptoms from earlier in the week without much change. I discussed this with the patient we will repeat laboratory studies at this time. I do not believe that we need to repeat imaging at this time was indicated by laboratory studies. She was in agreement with this plan. Labs will include urine studies, as well as basic electrolytes and CBC. Patient was administered IV Toradol, morphine, Zofran, 1 L fluid bolus for symptom management treatment. Patient is tolerating by mouth intake and reevaluation. Laboratory relatively unremarkable including a normal white count of 8.5 which is improved from earlier in the week. Patient's AST and ALTs are very mildly elevated to 46 and 49. Urine shows that she is not was no concern for UTI. On reevaluation, patient is tolerating by mouth intake. She still having mild persistent pain. Her mother asked regarding repeat imaging. I did discuss with them at length results of her laboratory studies and how they are within normal limits. I explained to them the previous findings on CT, which revealed no signs of acute appendicitis. We did discuss at length the possibility of polycystic ovarian syndrome and her need to follow up with [employer]. They asked if there are any blood studies up he can obtain here in the emergency department and informed them that this is more of an outpatient workup. They express understanding of this. I did advise him to return to the emergency department if they have any new symptoms, or worsening by mouth intake. They expressed und erstanding. Patient was in agreement this plan. I advised him to follow up with her [employer]ICIAN appointment scheduled for next Saturday. I will provide the patient with a prescription for Zofran ODT, lidocaine patch, Naprosyn, Tylenol. I instructed the patient to follow up with their PCP in the next 3 days. The patient already has a follow-up appointment with [employer]CHNICIAN on Saturday.. I explained that the patient should return to the emergency department if they experience any worsening symptoms. Strict return precautions were discussed with the patient. The patient expressed understanding of these instructions. I answered all questions that the patient had. The patient was discharged home in fair condition with their prescriptions and follow up information. - Lab Data Result diagrams: 04/21/21 13:17 04/21/21 13:17 Lab Results 04/21/21 04/21/21 04/21/21 Range/Units 13:17 13:17 13:17 WBC 8.5 (3.8-10.6) k/uL RBC 4.80 (3.80-5.40) m/uL Hgb 15.8 (11.4-16.0) gm/dL Hct 45.5 (34.0-46.0) % MCV 94.8 (80.0-100.0) fL MCH 33.0 (25.0-35.0) pg MCHC 34.8 (31.0-37.0) g/dL RDW 13.2 (11.5-15.5) % Plt Count 352 (150-450) k/uL MPV 9.7 Neutrophils % 64 % Lymphocytes % 29 % Monocytes % 5 % Eosinophils % 1 % Basophils % 1 % Neutrophils # 5.4 (1.3-7.7) k/uL Lymphocytes # 2.4 (1.0-4.8) k/uL Monocytes # 0.4 (0-1.0) k/uL Eosinophils # 0.1 (0-0.7) k/uL Basophils # 0.1 (0-0.2) k/uL Sodium (137-145) mmol/L Potassium (3.5-5.1) mmol/L Chloride (98-107) mmol/L Carbon Dioxide (22-30) mmol/L Anion Gap mmol/L BUN (7-17) mg/dL Creatinine (0.52-1.04) mg/dL Est GFR (CKD-EPI)AfAm (>60 ml/min/1.73 sqM) Est GFR (CKD-EPI)NonAf (>60 ml/min/1.73 sqM) Glucose (74-99) mg/dL Calcium (8.4-10.2) mg/dL Magnesium (1.6-2.3) mg/dL Total Bilirubin (0.2-1.3) mg/dL AST (14-36) U/L ALT (4-34) U/L Alkaline Phosphatase (38-126) U/L Total Protein (6.3-8.2) g/dL Albumin (3.5-5.0) g/dL Lipase (23-300) U/L Urine Color Yellow Urine Appearance Clear (Clear) Urine pH 5.5 (5.0-8.0) Ur Specific [place] 1.026 (1.001-1.035) Urine Protein Negative (Negative) Urine Glucose (UA) Negative (Negative) Urine Ketones Negative (Negative) Urine Blood Negative (Negative) Urine Nitrite Negative (Negative) Urine Bilirubin Negative (Negative) Urine Urobilinogen <2.0 (<2.0) mg/dL Ur Leukocyte Esterase Negative (Negative) Urine HCG, Qual Not Detected (Not Detectd) 04/21/21 Range/Units 13:17 WBC (3.8-10.6) k/uL RBC (3.80-5.40) m/uL Hgb (11.4-16.0) gm/dL Hct (34.0-46.0) % MCV (80.0-100.0) fL MCH (25.0-35.0) pg MCHC (31.0-37.0) g/dL RDW (11.5-15.5) % Plt Count (150-450) k/uL MPV Neutrophils % % Lymphocytes % % Monocytes % % Eosinophils % % Basophils % % Neutrophils # (1.3-7.7) k/uL Lymphocytes # (1.0-4.8) k/uL Monocytes # (0-1.0) k/uL Eosinophils # (0-0.7) k/uL Basophils # (0-0.2) k/uL Sodium 138 (137-145) mmol/L Potassium 4.7 (3.5-5.1) mmol/L Chloride 105 (98-107) mmol/L Carbon Dioxide 24 (22-30) mmol/L Anion Gap 9 mmol/L BUN 12 (7-17) mg/dL Creatinine 0.94 (0.52-1.04) mg/dL Est GFR (CKD-EPI)AfAm >90 (>60 ml/min/1.73 sqM) Est GFR (CKD-EPI)NonAf 86 (>60 ml/min/1.73 sqM) Glucose 78 (74-99) mg/dL Calcium 10.1 (8.4-10.2) mg/dL Magnesium 2.2 (1.6-2.3) mg/dL Total Bilirubin 0.4 (0.2-1.3) mg/dL AST 46 H (14-36) U/L ALT 49 H (4-34) U/L Alkaline Phosphatase 68 (38-126) U/L Total Protein 7.4 (6.3-8.2) g/dL Albumin 4.6 (3.5-5.0) g/dL Lipase 88 (23-300) U/L Urine Color Urine Appearance (Clear) Urine pH (5.0-8.0) Ur Specific [place] (1.001-1.035) Urine Protein (Negative) Urine Glucose (UA) (Negative) Urine Ketones (Negative) Urine Blood (Negative) Urine Nitrite (Negative) Urine Bilirubin (Negative) Urine Urobilinogen (<2.0) mg/dL Ur Leukocyte Esterase (Negative) Urine HCG, Qual (Not Detectd) Disposition Clinical Impression: Abdominal pain of unknown etiology, Nausea and vomiting, Polycystic ovarian syndrome Disposition: HOME SELF-CARE Condition: Fair Instructions (If sedation given, give patient instructions): Ovarian Cyst (ED), Abdominal Pain (ED) Prescriptions: Lidocaine 5% Patch [Lidoderm 5% Patch] 1 patch TOPICAL DAILY PRN #7 patch PRN Reason: Pain Naproxen [Naprosyn] 500 mg PO Q12HR PRN #14 tab PRN Reason: Pain Acetaminophen [Tylenol] 500 mg PO Q4-6H PRN #50 tab PRN Reason: Pain Ondansetron Odt [Zofran Odt] 4 mg PO Q8HR PRN #9 tab PRN Reason: Nausea Is patient prescribed a controlled substance at d/c from ED?: No Referrals: Ke Tom DO [Primary Care Provider] - 1-2 days
[2021-04-21 15:57] VITALS: BP 122/69; PULSE 53; TEMP 98.3
== END 2021-04-21 15:56 | disposition home or self-care (01) ==
LOC: EC 12:19
DX: R10.31 Right lower quadrant pain (principal); E28.2 Polycystic ovarian syndrome; R11.2 Nausea with vomiting, unspecified; I10 Essential (primary) hypertension; Z79.1 Long term (current) use of non-steroidal anti-inflammatories (NSAID); Z79.899 Other long term (current) drug therapy
CPT/HCPCS: 36415; 80053; 83690; 83735; 85025; 81003; 81025; 96374; 96375 ×2; 96361; 99284; J2270; J2405; J1885

== ENCOUNTER 2022-09-09 19:43 | Emergency (ER) | payer BC ==
--- NOTE | 2022-09-09 20:00 | ED ---
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 Patient admits to feeling mildly dyspneic as well. Patient states that she got over a Covid infection earlier this month, and she denies having a cough at this time. Patient denies fever or chills, trauma or injury, headache, focal numbness/weakness/neuro deficit, neck/arm/jaw/back pain, pleuritic pain, dizziness, syncope, abdominal pain, nausea/vomiting/diarrhea, dysuria or urinary symptoms, decreased urine output, leg or calf swelling or pain, or any other symptoms or complaints. Patient states that she is currently on her period. Patient denies tobacco or illicit drug use. - Related Data Home Medications Medication Instructions Recorded Confirmed Albuterol Sulfate [Proair Hfa] 2 puff INHALATION RT-Q4H PRN 04/21/21 04/21/21 Fluticasone Nasal [place] [Flonase 1 spr EA NOSTRIL BID PRN 04/21/21 04/21/21 Nasal [place]] Ibuprofen [Motrin Ib] 400 mg PO Q8H PRN 04/21/21 04/21/21 Previous Rx's Medication Instructions Recorded Acetaminophen [Tylenol] 500 mg PO Q4-6H PRN #50 tab 04/21/21 Lidocaine 5% Patch [Lidoderm 5% 1 patch TOPICAL DAILY PRN #7 patch 04/21/21 Patch] Naproxen [Naprosyn] 500 mg PO Q12HR PRN #14 tab 04/21/21 Ondansetron Odt [Zofran Odt] 4 mg PO Q8HR PRN #9 tab 04/21/21 Allergies Allergy/AdvReac Type Severity Reaction Status Date / Time No Known Allergies Allergy Verified 09/09/22 19:49 Review of Systems ROS Statement: Those systems with pertinent positive or pertinent negative responses have been documented in the HPI. ROS Other: All systems not noted in ROS Statement are negative. Past Medical History Past Medical History: Hypertension Additional Past Medical History / Comment(s): elevated heart rate History of Any Multi-Drug Resistant Organisms: None Reported Past Surgical History: No Surgical Hx Reported Past Psychological History: No Psychological Hx Reported Smoking Status: Never smoker Past Alcohol Use History: Occasional Past Drug Use History: None Reported General Exam Limitations: no limitations General appearance: alert, in no apparent distress Head exam: Present: atraumatic, normocephalic Eye exam: Present: normal appearance, EOMI ENT exam: Present: mucous membranes moist Neck exam: Present: other (Trachea is in midline) Respiratory exam: Present: normal lung sounds bilaterally. Absent: respiratory distress, wheezes, rales, rhonchi, stridor, chest wall tenderness Cardiovascular Exam: Present: normal rhythm, tachycardia, normal heart sounds, other (Normal radial pulses bilaterally) GI/Abdominal exam: Present: soft. Absent: distended, tenderness, guarding Extremities exam: Present: other (Negative Homans sign bilaterally). Absent: tenderness, pedal edema, calf tenderness Neurological exam: Present: alert, oriented X3. Absent: motor sensory deficit Psychiatric exam: Present: normal affect, normal mood Skin exam: Present: warm, dry, intact, normal color Course Vital Signs 09/09/22 09/09/22 09/09/22 19:49 20:51 21:51 Temperature 97.9 F 98.5 F Pulse Rate 117 H 93 100 Respiratory 18 16 17 Rate Blood Pressure 160/111 154/100 141/102 O2 Sat by Pulse 98 100 100 Oximetry - Reevaluation(s) Reevaluation #1: 09/09/22 21:54 Patient's heart rate has now improved to the 90s, and she remains in a sinus rhythm on the classroom monitor. Patient's blood pressure has also improved, but is still somewhat elevated at 141/102. Patient remains alert and breathing comfortably with a normal room air oxygen saturation. Patient states that her symptoms have improved significantly since coming to the ED. Patient and mother are aware the patient's test results, and they both feel comfortable with the patient being discharged from the ED at this time. Mother states that this is not the patient's first time experiencing these symptoms, and she states that the patient has followed up with cardiology for similar symptoms in the past. I have advised the patient to follow up closely with her primary care provider for further assessment of her blood pressure. Patient and mother were counseled about chest pain, palpitations and elevated blood pressure. They were clearly explained return and follow-up instructions, and they feel comfortable with this plan. EKG Findings - EKG Comments: EKG Findings:: ED physician interpretation: Sinus tachycardia, ventricular rate 109 bpm, no ectopy, normal OK and QRS intervals, normal QT interval, normal axis, no ST or T-wave abnormality Medical Decision Making - Medical Decision Making Patient's troponin, chest x-ray and d-dimer are all negative. Patient is alert and breathing comfortably with clear breath sounds bilaterally and a normal room air oxygen saturation. I do not suspect an emergent medical condition at this time. Will discharge patient home with her mother at this time with instructions to follow up closely with her primary care provider. Patient and mother feel comfortable with this plan. - Lab Data Result diagrams: 09/09/22 20:16 09/09/22 20:16 Lab Results 09/09/22 09/09/22 09/09/22 Range/Units 20:16 20:16 20:16 WBC 12.8 H (3.8-10.6) k/uL RBC 4.74 (3.80-5.40) m/uL Hgb 15.4 (11.4-16.0) gm/dL Hct 43.2 (34.0-46.0) % MCV 91.2 (80.0-100.0) fL MCH 32.5 (25.0-35.0) pg MCHC 35.6 (31.0-37.0) g/dL RDW 12.7 (11.5-15.5) % Plt Count 413 (150-450) k/uL MPV 8.8 Neutrophils % 66 % Lymphocytes % 25 % Monocytes % 5 % Eosinophils % 1 % Basophils % 1 % Neutrophils # 8.4 H (1.3-7.7) k/uL Lymphocytes # 3.2 (1.0-4.8) k/uL Monocytes # 0.6 (0-1.0) k/uL Eosinophils # 0.1 (0-0.7) k/uL Basophils # 0.1 (0-0.2) k/uL PT 10.0 (9.0-12.0) sec INR 0.9 (<1.2) APTT 23.2 (22.0-30.0) sec D-Dimer 0.35 (<0.60) mg/L FEU Sodium 137 (137-145) mmol/L Potassium 4.5 (3.5-5.1) mmol/L Chloride 106 (98-107) mmol/L Carbon Dioxide 21 L (22-30) mmol/L Anion Gap 10 mmol/L BUN 6 L (7-17) mg/dL Creatinine 0.92 (0.52-1.04) mg/dL Est GFR (CKD-EPI)AfAm >90 (>60 ml/min/1.73 sqM) Est GFR (CKD-EPI)NonAf 88 (>60 ml/min/1.73 sqM) Glucose 92 (74-99) mg/dL Calcium 9.6 (8.4-10.2) mg/dL Magnesium 1.9 (1.6-2.3) mg/dL Total Bilirubin 0.3 (0.2-1.3) mg/dL AST 51 H (14-36) U/L ALT 93 H (4-34) U/L Alkaline Phosphatase 98 (38-126) U/L Troponin I (0.000-0.034) ng/mL NT-Pro-B Natriuret Pep pg/mL Total Protein 7.5 (6.3-8.2) g/dL Albumin 4.6 (3.5-5.0) g/dL HCG, Qual Not Detected 09/09/22 09/09/22 Range/Units 20:16 20:16 WBC (3.8-10.6) k/uL RBC (3.80-5.40) m/uL Hgb (11.4-16.0) gm/dL Hct (34.0-46.0) % MCV (80.0-100.0) fL MCH (25.0-35.0) pg MCHC (31.0-37.0) g/dL RDW (11.5-15.5) % Plt Count (150-450) k/uL MPV Neutrophils % % Lymphocytes % % Monocytes % % Eosinophils % % Basophils % % Neutrophils # (1.3-7.7) k/uL Lymphocytes # (1.0-4.8) k/uL Monocytes # (0-1.0) k/uL Eosinophils # (0-0.7) k/uL Basophils # (0-0.2) k/uL PT (9.0-12.0) sec INR (<1.2) APTT (22.0-30.0) sec D-Dimer (<0.60) mg/L FEU Sodium (137-145) mmol/L Potassium (3.5-5.1) mmol/L Chloride (98-107) mmol/L Carbon Dioxide (22-30) mmol/L Anion Gap mmol/L BUN (7-17) mg/dL Creatinine (0.52-1.04) mg/dL Est GFR (CKD-EPI)AfAm (>60 ml/min/1.73 sqM) Est GFR (CKD-EPI)NonAf (>60 ml/min/1.73 sqM) Glucose (74-99) mg/dL Calcium (8.4-10.2) mg/dL Magnesium (1.6-2.3) mg/dL Total Bilirubin (0.2-1.3) mg/dL AST (14-36) U/L ALT (4-34) U/L Alkaline Phosphatase (38-126) U/L Troponin I <0.012 (0.000-0.034) ng/mL NT-Pro-B Natriuret Pep 191 pg/mL Total Protein (6.3-8.2) g/dL Albumin (3.5-5.0) g/dL HCG, Qual - Radiology Data Chest x-ray: No acute cardiopulmonary disease/process. Disposition Clinical Impression: Chest pain, Palpitations, Elevated blood pressure reading Disposition: HOME SELF-CARE Condition: Stable Instructions (If sedation given, give patient instructions): Chest Pain (ED), Heart Palpitations (ED), Hypertension (ED) Additional Instructions: Return to the ER immediately should you develop new or worsening pain, shortness of breath, feeling dizzy or faint, a fever, vomiting, a significant headache, numbness or weakness, or new or worsening symptoms. Follow up closely with your primary care provider. Is patient prescribed a controlled substance at d/c from ED?: No Referrals: Ke Tom DO [Primary Care Provider] - 1-2 days Time of Disposition: 22:01
[2022-09-09 20:20] LABS: Basophils # (A) 0.1 k/uL (0-0.2); Basophils % (A) 1 %; Eosinophils # (A) 0.1 k/uL (0-0.7); Eosinophils % (A) 1 %; HCT 43.2 % (34.0-46.0); HGB 15.4 gm/dL (11.4-16.0); Lymphocytes # (A) 3.2 k/uL (1.0-4.8); Lymphocytes % (A) 25 %; MCH 32.5 pg (25.0-35.0); MCHC 35.6 g/dL (31.0-37.0); MCV 91.2 fL (80.0-100.0); Mean Platelet Volume 8.8; Monocytes # (A) 0.6 k/uL (0-1.0); Monocytes % (A) 5 %; Neutrophils # (A) 8.4 k/uL (1.3-7.7); Neutrophils % (A) 66 %; Platelet Count 413 k/uL (150-450); RBC 4.74 m/uL (3.80-5.40); RDW 12.7 % (11.5-15.5); WBC 12.8 k/uL (3.8-10.6)
[2022-09-09 20:35] LABS: HCG,Qualitative Serum Not Detected
[2022-09-09 20:38] LABS: ALT 93 U/L (4-34); AST 51 U/L (14-36); African American GFR (CKD) >90 (>60 ml/min/1.73 sqM); Albumin 4.6 g/dL (3.5-5.0); Alkaline Phosphatase 98 U/L (38-126); Anion Gap 10 mmol/L; Blood Urea Nitrogen 6 mg/dL (7-17); Calcium 9.6 mg/dL (8.4-10.2); Carbon Dioxide 21 mmol/L (22-30); Chloride 106 mmol/L (98-107); Glucose 92 mg/dL (74-99); Magnesium 1.9 mg/dL (1.6-2.3); Non-African American GFR(CKD) 88 (>60 ml/min/1.73 sqM); Potassium 4.5 mmol/L (3.5-5.1); Sodium 137 mmol/L (137-145); Total Bilirubin 0.3 mg/dL (0.2-1.3); Total Protein 7.5 g/dL (6.3-8.2)
--- NOTE | 2022-09-09 20:43 | XR ---
EXAMINATION TYPE: XR chest 2V DATE OF EXAM: 09/09/2022 8:22 PM COMPARISON: Chest x-ray 12/31/2019 TECHNIQUE: XR chest 2V . CLINICAL INDICATION:Female, 22 years old with history of Chest Pain; FINDINGS: Lungs/Pleura: There is no evidence of pleural effusion, focal consolidation, or pneumothorax. Pulmonary vascularity: Unremarkable. Heart/mediastinum: Cardiomediastinal silhouette is unremarkable. Musculoskeletal: No acute osseous pathology. IMPRESSION: No acute cardiopulmonary disease/process.
[2022-09-09 21:06] LABS: INR 0.9 (<1.2)
[2022-09-09 21:07] LABS: Partial Thromboplastin Time 23.2 sec (22.0-30.0)
[2022-09-09 21:52] VITALS: BP 141/102; RESP 17; TEMP 98.5
[2022-09-09 22:17] VITALS: PULSE 94
== END 2022-09-09 22:17 | disposition home or self-care (01) ==
LOC: EC 19:43
DX: R00.2 Palpitations (principal); R03.0 Elevated blood-pressure reading, without diagnosis of hypertension; I10 Essential (primary) hypertension
CPT/HCPCS: 36415; 71046; 80053; 83735; 83880; 84484; 84703; 85025; 85379; 85610; 85730; 93005; 99285

== ENCOUNTER 2022-09-11 19:18 | Emergency (ER) | payer BC ==
[2022-09-11 19:25] VITALS: TEMP 97.7
--- NOTE | 2022-09-11 21:07 | ED ---
General Adult HPI - General Chief complaint: Recheck/Abnormal Lab/Rx Stated complaint: Palpitations Time Seen by Provider: 09/11/22 20:57 Source: patient, RN notes reviewed Mode of arrival: ambulatory Limitations: no limitations - History of Present Illness Initial comments: Patient is a pleasant 22-year-old female presenting to the emergency department with concerns for palpitations. Patient was in the emergency department several days ago with similar symptoms. Patient complains of feeling like her heart is racing. Patient did have her heart rate and blood pressure checked and they were both high. Patient states currently she is symptom-free. Patient denies feeling anxious. Patient denies drug use or energy drink use. Patient also saw a [facility] a few years ago with somewhat similar symptoms, unclear if echo was done. - Related Data Previous Rx's Medication Instructions Recorded atenoloL [Tenormin] 12.5 mg PO DAILY #7 each 09/11/22 Allergies Allergy/AdvReac Type Severity Reaction Status Date / Time No Known Allergies Allergy Verified 09/11/22 21:39 Review of Systems ROS Statement: Those systems with pertinent positive or pertinent negative responses have been documented in the HPI. ROS Other: All systems not noted in ROS Statement are negative. Constitutional: Denies: fever Eyes: Denies: eye pain ENT: Denies: ear pain Respiratory: Denies: cough, dyspnea Cardiovascular: Reports: palpitations. Denies: chest pain Endocrine: Denies: fatigue Gastrointestinal: Denies: abdominal pain Genitourinary: Denies: dysuria Musculoskeletal: Denies: back pain Skin: Denies: rash Neurological: Denies: weakness Past Medical History Past Medical History: Hypertension Additional Past Medical History / Comment(s): elevated heart rate History of Any Multi-Drug Resistant Organisms: None Reported Past Surgical History: No Surgical Hx Reported Past Psychological History: No Psychological Hx Reported Smoking Status: Vaper Past Alcohol Use History: Occasional Past Drug Use History: None Reported General Exam Limitations: no limitations General appearance: alert, in no apparent distress Head exam: Present: normocephalic Eye exam: Present: normal appearance Neck exam: Present: normal inspection Respiratory exam: Present: normal lung sounds bilaterally Cardiovascular Exam: Present: regular rate, normal rhythm Expanded Peripheral pulses: 2+: Radial (R), Radial (L), Dorsalis Pedis (R), Dorsalis Pedis (L) GI/Abdominal exam: Present: soft. Absent: tenderness Extremities exam: Present: normal inspection. Absent: pedal edema, calf tenderness Neurological exam: Present: alert Psychiatric exam: Present: normal affect, normal mood Skin exam: Present: normal color Course Vital Signs 09/11/22 09/11/22 19:22 22:21 Temperature 97.7 F Pulse Rate 141 H 92 Respiratory 20 15 Rate Blood Pressure 162/111 169/104 O2 Sat by Pulse 96 100 Oximetry - Reevaluation(s) Reevaluation #1: 09/11/22 21:07 cardiac monitor shows sinus rhythm with a rate between 86 and 110. Patient was placed on playground monitor secondary to palpitations and to monitor for dysrhythmia EKG Findings - EKG Results: EKG: interpreted by YOVANAD, sinus rhythm, normal axis, normal QRS, normal ST/T EKG shows: tachycardia Medical Decision Making - Medical Decision Making Patient reevaluated and resting comfortably in bed. Patient updated on results and need for close follow-up. Patient states she does have an appointment this week. Patient will be started on low-dose beta iam. - Lab Data Result diagrams: 09/11/22 21:23 09/11/22 21:23 Lab Results 09/11/22 09/11/22 09/11/22 Range/Units 21:23 21:23 21:23 WBC 10.9 H (3.8-10.6) k/uL RBC 4.61 (3.80-5.40) m/uL Hgb 14.9 (11.4-16.0) gm/dL Hct 42.0 (34.0-46.0) % MCV 91.0 (80.0-100.0) fL MCH 32.2 (25.0-35.0) pg MCHC 35.4 (31.0-37.0) g/dL RDW 13.0 (11.5-15.5) % Plt Count 378 (150-450) k/uL MPV 8.9 Neutrophils % 71 % Lymphocytes % 22 % Monocytes % 4 % Eosinophils % 1 % Basophils % 1 % Neutrophils # 7.7 (1.3-7.7) k/uL Lymphocytes # 2.4 (1.0-4.8) k/uL Monocytes # 0.4 (0-1.0) k/uL Eosinophils # 0.1 (0-0.7) k/uL Basophils # 0.1 (0-0.2) k/uL PT 10.0 (9.0-12.0) sec INR 0.9 (<1.2) APTT 23.4 (22.0-30.0) sec D-Dimer 0.30 (<0.60) mg/L FEU Sodium 139 (137-145) mmol/L Potassium 4.6 (3.5-5.1) mmol/L Chloride 107 (98-107) mmol/L Carbon Dioxide 23 (22-30) mmol/L Anion Gap 9 mmol/L BUN 9 (7-17) mg/dL Creatinine 0.94 (0.52-1.04) mg/dL Est GFR (CKD-EPI)AfAm >90 (>60 ml/min/1.73 sqM) Est GFR (CKD-EPI)NonAf 85 (>60 ml/min/1.73 sqM) Glucose 91 (74-99) mg/dL Calcium 9.4 (8.4-10.2) mg/dL Magnesium 2.2 (1.6-2.3) mg/dL Total Bilirubin 0.3 (0.2-1.3) mg/dL AST 43 H (14-36) U/L ALT 86 H (4-34) U/L Alkaline Phosphatase 87 (38-126) U/L Troponin I (0.000-0.034) ng/mL Total Protein 7.5 (6.3-8.2) g/dL Albumin 4.5 (3.5-5.0) g/dL TSH 2.750 (0.465-4.680) mIU/L Free T4 0.94 (0.78-2.19) ng/dL Free T3 pg/mL 4.8 (2.8-5.3) pg/ml 09/11/22 Range/Units 21:23 WBC (3.8-10.6) k/uL RBC (3.80-5.40) m/uL Hgb (11.4-16.0) gm/dL Hct (34.0-46.0) % MCV (80.0-100.0) fL MCH (25.0-35.0) pg MCHC (31.0-37.0) g/dL RDW (11.5-15.5) % Plt Count (150-450) k/uL MPV Neutrophils % % Lymphocytes % % Monocytes % % Eosinophils % % Basophils % % Neutrophils # (1.3-7.7) k/uL Lymphocytes # (1.0-4.8) k/uL Monocytes # (0-1.0) k/uL Eosinophils # (0-0.7) k/uL Basophils # (0-0.2) k/uL PT (9.0-12.0) sec INR (<1.2) APTT (22.0-30.0) sec D-Dimer (<0.60) mg/L FEU Sodium (137-145) mmol/L Potassium (3.5-5.1) mmol/L Chloride (98-107) mmol/L Carbon Dioxide (22-30) mmol/L Anion Gap mmol/L BUN (7-17) mg/dL Creatinine (0.52-1.04) mg/dL Est GFR (CKD-EPI)AfAm (>60 ml/min/1.73 sqM) Est GFR (CKD-EPI)NonAf (>60 ml/min/1.73 sqM) Glucose (74-99) mg/dL Calcium (8.4-10.2) mg/dL Magnesium (1.6-2.3) mg/dL Total Bilirubin (0.2-1.3) mg/dL AST (14-36) U/L ALT (4-34) U/L Alkaline Phosphatase (38-126) U/L Troponin I <0.012 (0.000-0.034) ng/mL Total Protein (6.3-8.2) g/dL Albumin (3.5-5.0) g/dL TSH (0.465-4.680) mIU/L Free T4 (0.78-2.19) ng/dL Free T3 pg/mL (2.8-5.3) pg/ml - Radiology Data Interpreted by me: Chest x-ray shows no acute process Disposition Clinical Impression: Palpitations, Hypertension Disposition: HOME SELF-CARE Condition: Stable Instructions (If sedation given, give patient instructions): Hypertension (ED), Heart Palpitations (ED) Additional Instructions: Please do follow-up with your primary care physician this week as planned. Please keep track of heart rate and blood pressure and provided list your doctor. Return for increased heart rate, increased blood pressure, worsening symptoms or other concerns. Prescription has been sent to pharmacy. Prescriptions: atenoloL [Tenormin] 12.5 mg PO DAILY #7 each Is patient prescribed a controlled substance at d/c from ED?: No Referrals: Ke Tom DO [Primary Care Provider] - 1-2 days Time of Disposition: 22:30
[2022-09-11 21:39] LABS: Basophils # (A) 0.1 k/uL (0-0.2); Basophils % (A) 1 %; Eosinophils # (A) 0.1 k/uL (0-0.7); Eosinophils % (A) 1 %; HGB 14.9 gm/dL (11.4-16.0); Lymphocytes # (A) 2.4 k/uL (1.0-4.8); Lymphocytes % (A) 22 %; MCH 32.2 pg (25.0-35.0); MCHC 35.4 g/dL (31.0-37.0); Mean Platelet Volume 8.9; Monocytes # (A) 0.4 k/uL (0-1.0); Monocytes % (A) 4 %; Neutrophils # (A) 7.7 k/uL (1.3-7.7); Neutrophils % (A) 71 %; Platelet Count 378 k/uL (150-450); RBC 4.61 m/uL (3.80-5.40); WBC 10.9 k/uL (3.8-10.6)
[2022-09-11 21:51] LABS: ALT 86 U/L (4-34); AST 43 U/L (14-36); African American GFR (CKD) >90 (>60 ml/min/1.73 sqM); Albumin 4.5 g/dL (3.5-5.0); Alkaline Phosphatase 87 U/L (38-126); Anion Gap 9 mmol/L; Blood Urea Nitrogen 9 mg/dL (7-17); Calcium 9.4 mg/dL (8.4-10.2); Carbon Dioxide 23 mmol/L (22-30); Chloride 107 mmol/L (98-107); Glucose 91 mg/dL (74-99); Magnesium 2.2 mg/dL (1.6-2.3); Non-African American GFR(CKD) 85 (>60 ml/min/1.73 sqM); Potassium 4.6 mmol/L (3.5-5.1); Sodium 139 mmol/L (137-145); Total Bilirubin 0.3 mg/dL (0.2-1.3); Total Protein 7.5 g/dL (6.3-8.2)
[2022-09-11 21:52] LABS: INR 0.9 (<1.2); Partial Thromboplastin Time 23.4 sec (22.0-30.0)
--- NOTE | 2022-09-11 21:54 | XR ---
EXAMINATION TYPE: XR chest 2V DATE OF EXAM: 09/11/2022 9:41 PM COMPARISON: Chest radiographs from 09/09/2022 TECHNIQUE: XR chest 2V Frontal and lateral views of the chest. CLINICAL INDICATION:Female, 22 years old with history of dysrhythmia; FINDINGS: Lungs/Pleura: There is no evidence of pleural effusion, focal consolidation, or pneumothorax. Pulmonary vascularity: Unremarkable. Heart/mediastinum: Cardiomediastinal silhouette is unremarkable. Musculoskeletal: No acute osseous pathology. IMPRESSION: No acute cardiopulmonary disease/process.
[2022-09-11 22:08] LABS: T4, Free (Free Thyroxine) 0.94 ng/dL (0.78-2.19)
[2022-09-11 22:22] VITALS: BP 169/104; PULSE 92; RESP 15
== END 2022-09-11 23:00 | disposition home or self-care (01) ==
LOC: EC 19:18
DX: R00.2 Palpitations (principal); I10 Essential (primary) hypertension; F17.290 Nicotine dependence, other tobacco product, uncomplicated
CPT/HCPCS: 36415; 71046; 80053; 83735; 84439; 84443; 84481; 84484; 85025; 85379; 85610; 85730; 93005; 99285

== ENCOUNTER → 2024-01-20 | Outpatient (CLI) | payer BC ==
--- NOTE | 2024-01-20 10:23 | US ---
EXAMINATION TYPE: US abdomen complete DATE OF EXAM: 01/20/2024 COMPARISON: NONE CLINICAL INDICATION: Female, 23 years old with history of R94.5 ABNORMAL RESULTS OF LIVER FUNCTION ST UDIES; abnormal liver function test. TECHNIQUE: Multiple sonographic images of the abdomen are obtained. FINDINGS: EXAM MEASUREMENTS: Liver Length: 17.5 cm Gallbladder Wall: .3 cm CBD: .5 cm Spleen: 13.1 cm Right Kidney: 9.4 x 3.9 x 4.0 cm Left Kidney: 11.6 x 5.2 x 4.4 cm [employer] NOTES: Pancreas: Obscured by bowel gas Liver: Increased attenuation Gallbladder: No stones seen Evidence for sonographic Hewitt's sign: no CBD: wnl Spleen: wnl Right Kidney: No hydronephrosis or masses seen Left Kidney: No hydronephrosis or masses seen Upper IVC: wnl Abd Aorta: wnl The intrahepatic portion of the IVC and proximal abdominal aorta are within normal limits. There is no evidence of cholelithiasis. Common bile duct is unremarkable. The visualized portions of the gandara creas are homogenous. The spleen is unremarkable. Kidneys are symmetric and free of hydronephrosis. No renal lesions are seen. IMPRESSION: Correlate for hepatic steatosis.
== END | disposition home or self-care (01) ==
LOC: RADUSWWP 09:26
PROVIDERS: ATTEND Family Medicine
DX: R94.5 Abnormal results of liver function studies (principal)
CPT/HCPCS: 76700